=== PATIENT | male | born 1985 | race Caucasian/White ===

== ENCOUNTER 2019-06-22 15:54 | Emergency (ER) | payer SELFPAY ==
--- NOTE | 2019-06-22 16:00 | PDOC ---
Rapid Medical Evaluation Time Seen by Provider: 06/22/19 15:58 Medical Evaluation: 06/22/19 15:58 I have performed a brief in-person evaluation of this patient. The patient presents with a chief complaint of: finger swelling Pertinent physical exam findings:stable and in NAD, non-focal I have ordered the following: na The patient will proceed to the ED for further evaluation.
[2019-06-22] MEDS ORDERED: IBUPROFEN 600 MG TABLET (FP) PO ONE ×2 (16:01→16:22)
[2019-06-22 16:03] VITALS: BP 117/83; PULSE 89; TEMP 97.9; BMI 32.5
--- NOTE | 2019-06-22 16:40 | PDOC ---
History of Present Illness - General Chief Complaint: Pain, Acute Stated Complaint: RT HAND WOUND Time Seen by Provider: 06/22/19 15:58 History Source: Patient Exam Limitations: Clinical Condition - History of Present Illness Initial Comments: 06/22/19 16:38 Patient with no significant past medical history presented with complaint of one -week history of pain and swelling to lateral aspect of fingernail of right thumb. Denies numbness or tingling sensation. Denies trauma or injury to right thumb. Patient has not taken anything for pain. Denies any other symptoms Is this a multiple visit Asthma Patient?: No Timing/Duration: other (2 days) Past History - Past Medical History Allergies/Adverse Reactions: Allergies Allergy/AdvReac Type Severity Reaction Status Date / Time No Known Allergies Allergy Verified 06/22/19 16:03 Home Medications: Ambulatory Orders Cephalexin Monohydrate [Keflex -] 500 mg PO BID 7 Days #14 capsule 06/22/19 Ibuprofen 800 mg PO Q8H PRN #20 tablet 06/22/19 - Psycho Social/Smoking Cessation Hx Smoking History: Never smoked Have you smoked in the past 12 months: No Information on smoking cessation initiated: No Hx Alcohol Use: No Drug/Substance Use Hx: No Review of Systems - Review of Systems Able to Perform ROS?: Yes Is the patient limited [place] proficient: No Constitutional: No: Fever, Malaise, Night Sweats HEENTM: No: Symptoms Reported Respiratory: No: Symptoms reported Cardiac (ROS): No: Symptoms Reported ABD/GI: No: Symptoms Reported Musculoskeletal: Yes: Symptoms Reported, See HPI, Muscle Pain (pain to nailbed of right thumb) Integumentary: Yes: Symptoms Reported, Erythema (lateral side of nailbed of right thumb) Neurological: No: Symptoms reported, Numbness, Paresthesia, Tingling, Weakness All Other Systems: Reviewed and Negative *Physical Exam - Vital Signs Last Vital Signs Temp Pulse Resp BP Pulse Ox 97.9 F 89 18 117/83 99 06/22/19 16:01 06/22/19 16:01 06/22/19 16:01 06/22/19 16:01 06/22/19 16:01 - Physical Exam Comments: 06/22/19 16:42 GENERAL: Well developed, well nourished. Awake and alert. No acute distress. PULMONARY: No evidence of respiratory distress. MUSCULOSKELETAL : Moderate tenderness to lateral aspect of nailbed of right thumb with mild swelling and erythema to the lateral aspect of right thumb around fingernail. No bony deformities SKIN: Warm and dry. Normal capillary refill. Mild swelling and erythema to lateral aspect of nailbed of right thumb. NEUROLOGICAL: Alert, awake, appropriate. No motor deficits in the lower extremities. Gait is normal without ataxia. PSYCHIATRIC: Cooperative. Good eye contact. Appropriate mood and affect. General Appearance: Yes: Nourished, Appropriately Dressed. No: Apparent Distress ED Treatment Course - Medications Given in the ED: ED Medications Discontinued Medications Generic Name Dose Route Start Last Admin Trade Name Freq PRN Reason Stop Dose Admin Ibuprofen 600 mg 06/22/19 16:01 06/22/19 16:30 Motrin - PO 06/22/19 16:02 600 mg ONCE ONE Administration Medical Decision Making - Medical Decision Making 06/22/19 17:09 Patient with no significant past medical history presented with complaint of one -week history of pain and swelling to lateral aspect of fingernail of right thumb. Denies numbness or tingling sensation. Denies trauma or injury to right thumb. Patient has not taken anything for pain. Denies any other symptoms Exam significant for mild swelling to lateral aspect of nailbed of right thumb with moderate tenderness to lateral nailbed of right thumb. No open wound or drainage from site. Patient symptoms likely paronychia. Patient stable for outpatient management on Keflex antibiotics n.p.o. ibuprofen as needed for pain with advised to do hot compress and follow-up in 3 days for reassessment. Patient stable for discharge Discharge - Discharge Information Problems reviewed: Yes Clinical Impression/Diagnosis: Paronychia of right thumb Condition: Stable Disposition: HOME - Admission No - Additional Discharge Information Prescriptions: Cephalexin Monohydrate [Keflex -] 500 mg PO BID 7 Days #14 capsule Ibuprofen 800 mg PO Q8H PRN #20 tablet PRN Reason: pain - Follow up/Referral Referrals: Milagros Lr MD [Non Staff, Medical] - - Patient Discharge Instructions Patient Printed Discharge Instructions: DI for Paronychia Additional Instructions: Take prescribed medication as prescribed for fingernail swelling infection. Apply warm compress 2-3 times a day for 5 to 10 minutes as needed for swelling. Come back to emergency room or primary care if no improvement in 3 days for incision and drainage - Post Discharge Activity
== END 2019-06-22 17:00 | disposition home or self-care (01) ==
LOC: JERFT 15:54
DX: L03.011 Cellulitis of right finger (principal)
CPT/HCPCS: 99281-25